=== PATIENT | female | born 1990 | race Caucasian/White ===

== ENCOUNTER 2017-06-06 16:17 | Inpatient (IN) | payer BC ==
[~2017-06-06] VITALS: Ht 157.5 cm; Wt 68.5 kg
[~2017-06-06 16:17] MED LIST: ASPI-696 PO; ENOX60SY5 IM; PREN1TAB60 PO
[2017-06-06] MEDS ORDERED: LIDOCAINE 1%, 20ML ONE (21:13)
[2017-06-06] MEDS ORDERED: NEWBORN KIT ONE (21:13)
[2017-06-06] MEDS ORDERED: MISOPROSTOL 25 MCG TABLET ONE (21:13)
[2017-06-06] MEDS ORDERED: MISOPROSTOL 200 MCG TABLET ONE (21:14)
[2017-06-06] MEDS ORDERED: OXYTOCIN 30U/ 0.9% NaCL 500ML 500 ML ONE (21:14)
[2017-06-06] MEDS ORDERED: OXYTOCIN 30U/ 0.9% NaCL 500ML 500 ML IV PRN (21:17)
[2017-06-06] MEDS ORDERED: OXYTOCIN 30U/ 0.9% NaCL 500ML 500 ML IV ONE (21:17)
[2017-06-06] MEDS ORDERED: SODIUM CITRATE/CITRIC ACID 30 ML UDC PO PRN (21:30)
[2017-06-06] MEDS ORDERED: MISOPROSTOL 25 MCG TABLET VG PRN (21:30)
[2017-06-06] MEDS ORDERED: ALUMINUM/MAG/SIMETHICONE 30 ML UDC PO PRN (21:30)
[2017-06-06 21:40] LABS: BASOPHILS # (AUTO) 0.15 x10^3/uL (0-0.1); BASOPHILS % (AUTO) 1 % (0-1); EOSINOPHILS % (AUTO) 1 % (1-7); LYMPHOCYTES # (AUTO) 3.55 x10^3/uL (1-3.4); LYMPHOCYTES % (AUTO) 28 % (22-44); MD NO; MEAN CORPUSCULAR HEMOGLOBIN 25.8 pg (27.0-34.8); MEAN CORPUSCULAR HGB CONC 32.6 g/dL (32.4-35.8); MEAN CORPUSCULAR VOLUME 79.1 fL (80-100); MEAN PLATELET VOLUME 9.8 fL (7.4-10.4); MONOCYTES # (AUTO) 0.97 x10^3/uL (0.2-0.8); MONOCYTES % (AUTO) 8 % (2-9); NEUTROPHILS # (AUTO) 7.86 x10^3/uL (1.8-6.8); NEUTROPHILS % (AUTO) 62 % (42-75); PLATELET COUNT 243 x10^3/uL (130-400); RED CELL DISTRIBUTION WIDTH 14.5 % (9.6-15.2)
[2017-06-06 22:03] LABS: MICROSCOPIC AUTO
[2017-06-06] MEDS: LACTATED RINGERS 1,000 ML IV SCH (22:04)
[2017-06-06 22:08] VITALS: BP 125/79
[2017-06-06] MEDS ORDERED: DIPHENHYDRAMINE 25 MG CAPSULE PO PRN (23:30)
[2017-06-07] MEDS ORDERED: FENTANYL PF 100 MCG/2ML ONE ×3 (01:49→06:30)
[2017-06-07] MEDS: FENTANYL PF 100 MCG/2ML IVPush PRN ×3 (01:51→06:35)
[2017-06-07] MEDS: D5%-LACTATED RINGERS 1,000 ML IV SCH ×2 (05:34→11:48)
[2017-06-07] MEDS ORDERED: ONDANSETRON 2MG/ML, 2ML ONE ×2 (06:30→17:52)
[2017-06-07] MEDS: ONDANSETRON 2MG/ML, 2ML IVPush PRN ×2 (06:35→17:54)
[2017-06-07 07:53] LABS: INTERNATIONAL NORMALIZED RATIO 0.89 (0.93-1.1); PROTHROMBIN TIME 9.3 Seconds (9.6-11.5)
[2017-06-07] MEDS ORDERED: FENTANYL/BUPIV./NS/PF 250 ML EPIDCONT ONE (08:32)
[2017-06-07] MEDS ORDERED: LIDOCAINE-MPF 2% ,5ML ONE (08:32)
[2017-06-07] MEDS: LACTATED RINGERS 1,000 ML IV SCH ×2 (08:39→11:55)
[2017-06-07] MEDS ORDERED: LACTATED RINGERS 1,000 ML IV SCH (09:13)
[2017-06-07] MEDS ORDERED: FENTANYL/BUPIV./NS/PF 250 ML EPIDCONT SCH (09:13)
[2017-06-07] MEDS ORDERED: NALOXONE 0.4 MG/ML, 1ML IVPush PRN ×2 (09:30)
[2017-06-07] MEDS ORDERED: LACTATED RINGERS 1,000 ML IVBOLUS PRN (09:30)
[2017-06-07] MEDS ORDERED: BUPIVACAINE 0.25% ONE (09:35)
[2017-06-07] MEDS ORDERED: LIDOCAINE/PF 1.5%-EPI 1:200K, 30ML ONE (09:35)
[2017-06-07] MEDS: ACETAMINOPHEN 325 MG TABLET PO PRN ×2 (13:35→18:23)
[2017-06-07] MEDS ORDERED: ACETAMINOPHEN 325 MG TABLET ONE ×2 (13:37→18:20)
[2017-06-07] MEDS: AMPICILLIN 2 GM in SODIUM CHLORIDE 0.9% 100 ML IV SCH (19:35)
[2017-06-07] MEDS ORDERED: METOCLOPRAMIDE 5 MG/ML, 2ML ONE (19:42)
[2017-06-07 20:00] VITALS: BP 124/67
[2017-06-07] MEDS ORDERED: METOCLOPRAMIDE 5 MG/ML, 2ML IVPush ONE (20:00)
[2017-06-07 20:15] LABS: RAPID INFLUENZA A Negative (Negative); RAPID INFLUENZA B Negative (Negative)
[2017-06-08] MEDS ORDERED: ACETAMINOPHEN 325 MG TABLET PO PRN
[2017-06-08] MEDS ORDERED: MISOPROSTOL 200 MCG TABLET PR PRN
[2017-06-08] MEDS ORDERED: ONDANSETRON 2MG/ML, 2ML IV PRN
[2017-06-08] MEDS ORDERED: DOCUSATE 100 MG CAPSULE PO PRN
[2017-06-08] MEDS ORDERED: RHOGAM FROM BLOOD BANK 1 NOTE EA IM/IV ONE
[2017-06-08] MEDS ORDERED: DIPH,PERTUSS(ACELL),TET VAC/PF NC IM-VACC PRN
[2017-06-08] MEDS ORDERED: OXYTOCIN 30U/ 0.9% NaCL 500ML 500 ML ONE (00:48)
[2017-06-08] MEDS: AMPICILLIN 2 GM in SODIUM CHLORIDE 0.9% 100 ML IV SCH ×4 (01:30→22:00)
[2017-06-08 02:30] VITALS: BP 116/71
[2017-06-08] MEDS: LACTATED RINGERS 1,000 ML IV SCH ×4 (02:38→21:17)
[2017-06-08] MEDS: OXYTOCIN 30U/ 0.9% NaCL 500ML 500 ML IV SCH ×3 (04:32→19:36)
[2017-06-08] MEDS: OXYcodone/APAP 5/325MG TABLET PO PRN ×5 (05:02→23:46)
[2017-06-08] MEDS: HEPARIN 5,000 UNITS/ML, 1ML SQ SCH ×2 (05:03→17:12)
[2017-06-08 05:09] VITALS: BP 108/71
[2017-06-08] MEDS: IBUPROFEN 600 MG TABLET PO PRN ×3 (06:11→23:46)
[2017-06-08 07:00] LABS: MEAN CORPUSCULAR HEMOGLOBIN 26.4 pg (27.0-34.8); MEAN CORPUSCULAR HGB CONC 32.8 g/dL (32.4-35.8); MEAN CORPUSCULAR VOLUME 80.5 fL (80-100); MEAN PLATELET VOLUME 9.3 fL (7.4-10.4); PLATELET COUNT 185 x10^3/uL (130-400); RED BLOOD COUNT 3.64 x10^6/uL (3.82-5.3); RED CELL DISTRIBUTION WIDTH 14.7 % (9.6-15.2)
[2017-06-08 07:25] VITALS: BP 98/62
[2017-06-08 07:26] LABS: MD YES
[2017-06-08 07:32] LABS: <PLATELET ESTIMATE> ADEQUATE; <PLT MORPHOLOGY> NORMAL PLT MORPH; ANISOCYTOSIS 1+; BAND#(MANUAL) 2.86 x10^3/uL; BANDS%(MANUAL) 10 % (0-7); LYMPH#(MANUAL) 1.14 x10^3/uL (1-3.4); LYMPHS% (MANUAL) 4 % (22-44); METAMYELOCYTES# (MANUAL) 0.57 x10^3/uL (0-0); METAMYELOCYTES% (MANUAL) 2 % (0-1); MONOS#(MANUAL) 2.29 x10^3/uL (0.3-2.7); MONOS% (MANUAL) 8 % (2-9); SEG#(MANUAL) 21.74 x10^3/uL (1.8-6.8); SEGS% (MANUAL) 76 % (42-75)
[2017-06-08] MEDS: PRENATAL VIT/IRON/FA 1 EACH TABLET PO SCH (09:00)
[2017-06-08 12:00] VITALS: BP 91/61
[2017-06-08 17:00] VITALS: BP 105/72
[2017-06-08 19:30] VITALS: BP 96/61
[2017-06-09] MEDS: HEPARIN 5,000 UNITS/ML, 1ML SQ SCH ×2 (05:00→17:34)
[2017-06-09] MEDS: LACTATED RINGERS 1,000 ML IV SCH ×2 (05:17→13:17)
[2017-06-09] MEDS: OXYTOCIN 30U/ 0.9% NaCL 500ML 500 ML IV SCH ×2 (05:36→15:36)
[2017-06-09] MEDS: OXYcodone/APAP 5/325MG TABLET PO PRN ×3 (05:47→15:13)
[2017-06-09] MEDS: IBUPROFEN 600 MG TABLET PO PRN ×2 (05:47→15:13)
[2017-06-09 08:25] VITALS: BP 104/65
[2017-06-09] MEDS: PRENATAL VIT/IRON/FA 1 EACH TABLET PO SCH (08:38)
[2017-06-09] MEDS ORDERED: IBUP-1222 PO (15:26)
[2017-06-09] MEDS ORDERED: OXYC-302 PO (15:26)
== END 2017-06-09 18:00 | disposition home or self-care (01) | DRG 775 ==
LOC: LDIP 21:09 → 2NW 06-08 02:07
PROVIDERS: ADMIT Obstetrics & Gynecology; ATTEND Obstetrics & Gynecology
PROC: 10E0XZZ Delivery of Products of Conception, External Approach (ICD-10-PCS; principal; 2017-06-07)
PROC: 0KQM0ZZ Repair Perineum Muscle, Open Approach (ICD-10-PCS; 2017-06-07)
PROC: 10907ZC Drainage of Amniotic Fluid, Therapeutic from Products of Conception, Via Natural or Artificial Opening (ICD-10-PCS; 2017-06-07)
PROC: 3E033VJ Introduction of Other Hormone into Peripheral Vein, Percutaneous Approach (ICD-10-PCS; 2017-06-07)
PROC: 3E0R3BZ Introduction of Anesthetic Agent into Spinal Canal, Percutaneous Approach (ICD-10-PCS; 2017-06-07)
PROC: 00HU33Z Insertion of Infusion Device into Spinal Canal, Percutaneous Approach (ICD-10-PCS; 2017-06-07)
DX: O70.1 Second degree perineal laceration during delivery (principal); Z37.0 Single live birth; Z3A.39 39 weeks gestation of pregnancy; Z86.711 Personal history of pulmonary embolism
CPT/HCPCS: 36415; 81001; 82803; 85025; 85610; 85730; 86850; 86900; 87400; J0290; J1644; J2405; J3010; J3490; J2590; J2765; J7120; J7121